=== PATIENT | female | born 1970 | race African-American/Black ===

== ENCOUNTER 2021-12-01 23:29 | Emergency (ER) | payer SELFPAY ==
[~2021-12-01] VITALS: Ht 160 cm; Wt 86.5 kg
[2021-12-01 23:46] VITALS: BP 160/85
== END 2021-12-02 08:08 | disposition left against medical advice (07) ==
LOC: ER 23:29
DX: Z53.21 Procedure and treatment not carried out due to patient leaving prior to being seen by health care provider (principal); Z98.890 Other specified postprocedural states